=== PATIENT | male | born 2000 | race Two or more races ===

== ENCOUNTER 2022-12-16 22:37 | Emergency (ER) | payer MEDICARE, MEDICAID, SELFPAY ==
[2022-12-16 22:43] VITALS: BP 158/90; PULSE 78
[2022-12-16 23:17] VITALS: BP 109/53; PULSE 71; RESP 17; TEMP 37.9; O2SAT 97; BMI 32.6
[2022-12-17] VITALS: BP 122/70; PULSE 82; RESP 16; TEMP 37.1; O2SAT 98
--- NOTE | 2022-12-17 01:21 | ED_ITS ---
HPI - SOB/Dyspnea General Chief Complaint: Dyspnea Stated Complaint: sob Time Seen by Provider: 12/16/22 23:44 History of Present Illness HPI Narrative: patient is a 22-year-old male presents today with coughing upper respiratory symptoms. This symptom has been ongoing for about 6 days. No history of diabetes. Patient received 1 [employer] vaccine for COVID. He tested positive for COVID on Sunday night. Positive generalized malaise still. Positive low-grade fever. Positive congestion. Positive cough nonproductive in nature Related Data Allergies Allergy/AdvReac Type Severity Reaction Status Date / Time No Known Allergies Allergy Verified 12/16/22 23:45 Review of Systems Review of Systems: positive coughing generalized malaise Yes all other systems are reviewed and are negative PMFSH Past Medical History Attestation statement: The following information was validated with the patient. Social History Social History Advance Directives: No Advance Directives Information Provided: Yes Physical Exam Vital Signs: Vital Signs: Last Vital Signs Temp 98.7 F 12/17/22 00:00 Pulse 82 12/17/22 00:00 Resp 16 12/17/22 00:00 BP 122/70 12/17/22 00:00 Pulse Ox 98 12/17/22 00:00 O2 Del Method Room Air 12/17/22 00:00 BMI result Body Mass Index 32.6 Appearance: Alert. Oriented X3. No acute distress. Eyes: Pupils equal, round and reactive to light. ENT: Pharynx normal. Neck: Normal inspection. Neck supple. No lymph nodes noted. No crepitus CVS: Normal heart rate and rhythm. Pulses normal. Normal S1 and S2 Respiratory: No respiratory distress. Breath sounds normal. No Wheezing. No rales Abdomen: Soft and nontender. No rigidity. No distention. good BS x4 Skin: Skin warm and dry. Normal skin color. Normal skin turgor. Extremities: No lower extremity edema. Neurovascular intact to all extremities. No Lacerations. No Rash Neuro: Oriented X 3. No motor deficit. No sensory deficit. Moving all extermities. No slurred speech Medical Decision Making Medical Decision Making MDM Narrative: Well-appearing O2 sat is 97% on room air. No distress. Patient did receive a [employer] vaccine. He is 22 years old with no history of diabetes. Patient is out of the window for Paxlovid as it is greater than 5 days. Will have patient follow-up on an outpatient basis. Differential Diagnosis Differential Diagnoses: The differential diagnosis associated with the present ation includes COVID, pneumonia Lab Data MDM Lab Attestation statement: I reviewed the patient's lab results. Discharge Plan Discharge Clinical Impression: COVID-19 Patient Disposition: Home, Self-Care Instructions: COVID-19 (Coronavirus Disease 2019) (ED) Referrals: Physician,None [Primary Care Provider] - 12/19/22
[2022-12-17] MEDS: Ibuprofen 400 MG TABLET PO (02:03)
[2022-12-17 02:21] VITALS: BP 108/61; PULSE 70; RESP 16; TEMP 36.7; O2SAT 98
== END 2022-12-17 02:25 | disposition home or self-care (01) ==
PROVIDERS: Emergency Provider Emergency Medicine Emergency Medical Services
DX: U07.1 COVID-19 (principal); R06.02 Shortness of breath
CPT/HCPCS: 99284